=== PATIENT | female | born 2000 | race Caucasian/White ===

== ENCOUNTER 2022-01-30 09:40 | Emergency (ER) | payer SELFPAY ==
[~2022-01-30] VITALS: Ht 167.6 cm; Wt 62.1 kg
--- NOTE | 2022-01-30 09:40 | NUR ---
PT THANH 77 FROM HOME C/O AGITATION AFTER COCAINE AND ALCOHOL USED. VERSED 7.5MG GIVEN BY EMS. PT IS AAOX1, NOT IN RESPIRATORY DISTRESS, HOOKED TO HOG BUYER, KEPT RESTED AND COMFORTABLE. WILL CONTINUE TO MONITOR.
[2022-01-30] MEDS ORDERED: IV NS 0.9% 1,000 ML BAG IV ONE (10:00)
--- NOTE | 2022-01-30 10:09 | NUR ---
MINDY [phone] SISTER.
--- NOTE | 2022-01-30 10:10 | NUR ---
URINE SPECIMEN COLLECTED AND SENT TO LAB.
[2022-01-30 10:30] LABS: BASOPHILS % (AUTO) 0.5 % (0.0-2.0); EOSINOPHILS % (AUTO) 0.4 % (0.0-6.0); HEMATOCRIT 41 % (33-45); HEMOGLOBIN 13.5 g/dL (11.5-14.8); LYMPHOCYTES # (AUTO) 1.3 K/uL (0.8-4.8); LYMPHOCYTES % (AUTO) 17.4 % (20.0-44.0); MEAN CORPUSCULAR HGB CONC 33 g/dl (31.0-36.0); MEAN CORPUSCULAR VOLUME 87 fL (82-100); MONOCYTES # (AUTO) 0.7 K/uL (0.1-1.30); MONOCYTES % (AUTO) 9.5 % (2.0-12.0); NEUTROPHILS # (AUTO) 5.5 K/uL (1.8-8.9); NEUTROPHILS % (AUTO) 72.2 % (43.0-81.0); PLATELET COUNT (AUTO) 294 K/uL (150-450); WHITE BLOOD COUNT (AUTO) 7.6 K/uL (4.3-11.0)
[2022-01-30 10:36] LABS: BILIRUBIN,URINE NEGATIVE (NEGATIVE); LEUKOCYTE ESTERASE ,URINE NEGATIVE (NEGATIVE); NITRITE, URINE NEGATIVE (NEGATIVE); PROTEIN,URINE NEGATIVE (NEGATIVE); UGLUCOSE NEGATIVE (NEGATIVE); UROBILINOGEN,URINE 0.2 EU/dL (0.2)
[2022-01-30 10:37] LABS: COLOR,URINE STRAW (YELLOW)
--- NOTE | 2022-01-30 10:40 | NUR ---
PT IS BACK FROM THE CT SCAN.
--- NOTE | 2022-01-30 10:41 | NUR ---
[place] [facility] [phone]
[2022-01-30 11:15] LABS: CREATINE KINASE, TOTAL 109 U/L (26-192)
[2022-01-30 11:18] LABS: ALANINE AMINOTRANSFERASE 13 U/L (12-78); ALCOHOL, BLOOD < 3 mg/dL (0-0); ALKALINE PHOSPHATASE 47 U/L (46-116); ASPARTATE AMINOTRANSFERASE 7 U/L (15-37); BILIRUBIN,DIRECT 0.1 mg/dL (0.0-0.2); BILIRUBIN,TOTAL 0.5 mg/dL (0.2-1.0); CALCIUM, SERUM 8.9 mg/dL (8.5-10.1); CARBON DIOXIDE 23 mmol/L (21-32); CHLORIDE 105 mmol/L (98-107); CREATININE 0.9 mg/dL (0.6-1.3); GLUCOSE 85 mg/dL (74-106); POTASSIUM 3.7 mmol/L (3.5-5.1); SODIUM SERUM 139 mmol/L (136-145); TOTAL PROTEIN, SERUM 7.2 g/dL (6.4-8.2); UREA NITROGEN, BLOOD 7 mg/dL (7-18)
[2022-01-30 11:30] LABS: ACETAMINOPHEN 0 ug/ml (10-30)
[2022-01-30 11:39] LABS: BACTERIA,URINE None seen /HPF (None Seen); WBC,URINE 0-2 /HPF (0-3)
[2022-01-30 11:40] LABS: MUCUS,URINE Few /LPF (None Seen); SQUAMOUS EPITHELIAL CELL,UR Few /HPF (None Seen)
--- NOTE | 2022-01-30 13:37 | NUR ---
PT AWAKE AND ALERT. PER PT HER FRIEND IS COMING TO PICK HER UP AND BRING SOME CLOTHES.
[2022-01-30 15:17] VITALS: BP 121/73
--- NOTE | 2022-01-30 15:17 | NUR ---
IV removed. Catheter intact and site benign. Pressure and 4x4 applied to site. No bleeding noted. Patient discharged to home in stable condition. Written and verbal after care instructions given. Patient verbalizes understanding of instruction.
--- NOTE | 2022-01-30 15:17 | NUR ---
FRIEND AT BEDSIDE FOR MACHINE LOAD CLERK.
== END 2022-01-30 15:43 | disposition home or self-care (01) ==
LOC: ER 09:43
DX: R45.1 Restlessness and agitation (principal); R41.82 Altered mental status, unspecified; F32.A Depression, unspecified; F17.200 Nicotine dependence, unspecified, uncomplicated
CPT/HCPCS: 36415; 70450; 80048; 80076; 80143; 80307; 80320; 81001; 82550; 84703; 85025; 96360; 99284; J7030; G0480

== ENCOUNTER 2022-05-16 04:03 | Emergency (ER) | payer OTHER ==
[~2022-05-16] VITALS: Ht 167.6 cm; Wt 59.0 kg
--- NOTE | 2022-05-16 04:27 | NUR ---
THANH AND [employer] FOR C/O SELF-INFLICTED HEADE/L EYE INJURY S/P TAKING ECSTASY TONIGHT. PT HAS HX OF BIPOLAR DISORDER AND SCHIZOPHRENIA AND HAS HAD SIMILIAR EPISODES AND HAS BEEN PLACED ON 5150S IN THE PAST PER EMS/[employer] REPORT. PT DENIES ANY ANY LOSS OF CONSCIOUSNESS, DIZZINES, N/V, OR PAIN. PT AWAKE AND ALERT X4, BREATHING EVEN AND UNLABORED.PT DENIES SI/HI STATES SHE GOT "TOO HIGH". PLACED ON 5150 HOLD BY [employer] FOR DTS. PT CHANGED INTO GOWN AND BELONGINGS REMOVED FROM PATIENT ROOM. SITTER AT BEDSIDE FOR SAFETY PRECAUTIONS. PLACED ON MONITOR AND V/S WNL.
--- NOTE | 2022-05-16 04:41 | NUR ---
SECURITY AT BEDSIDE FOR WANDING
--- NOTE | 2022-05-16 04:44 | NUR ---
ASPHALT COATER AT BEDSIDE
--- NOTE | 2022-05-16 04:50 | NUR ---
COVID TEST COLLECTED AND SENT TO LAB
--- NOTE | 2022-05-16 04:50 | NUR ---
PT UNABLE TO GIVE URINE AT THIS TIME. URINE CUP PROVIDED AT BEDSIDE.
[2022-05-16 04:58] LABS: BASOPHILS % (AUTO) 0.5 % (0.0-2.0); HEMATOCRIT 39 % (33-45); HEMOGLOBIN 13.1 g/dL (11.5-14.8); LYMPHOCYTES # (AUTO) 0.7 K/uL (0.8-4.8); LYMPHOCYTES % (AUTO) 8.8 % (20.0-44.0); MEAN CORPUSCULAR HGB CONC 34 g/dl (31.0-36.0); MEAN CORPUSCULAR VOLUME 87 fL (82-100); MONOCYTES # (AUTO) 0.2 K/uL (0.1-1.30); MONOCYTES % (AUTO) 3.1 % (2.0-12.0); NEUTROPHILS # (AUTO) 7.1 K/uL (1.8-8.9); NEUTROPHILS % (AUTO) 87.6 % (43.0-81.0); PLATELET COUNT (AUTO) 251 K/uL (150-450); RED BLOOD CELL COUNT(AUTO) 4.47 MIL/uL (4.0-5.2); WHITE BLOOD COUNT (AUTO) 8.1 K/uL (4.3-11.0)
[2022-05-16 05:12] LABS: ACETAMINOPHEN 3 ug/ml (10-30); ALANINE AMINOTRANSFERASE 11 U/L (12-78); ALBUMIN 4.1 g/dL (3.4-5.0); ALKALINE PHOSPHATASE 58 U/L (46-116); ASPARTATE AMINOTRANSFERASE 14 U/L (15-37); BILIRUBIN,DIRECT 0.2 mg/dL (0.0-0.2); BILIRUBIN,TOTAL 0.8 mg/dL (0.2-1.0); CALCIUM, SERUM 8.4 mg/dL (8.5-10.1); CARBON DIOXIDE 25 mmol/L (21-32); CHLORIDE 103 mmol/L (98-107); CREATININE 0.9 mg/dL (0.6-1.3); GLUCOSE 103 mg/dL (74-106); POTASSIUM 3.5 mmol/L (3.5-5.1); SODIUM SERUM 137 mmol/L (136-145); TOTAL PROTEIN, SERUM 7.3 g/dL (6.4-8.2); UREA NITROGEN, BLOOD 3 mg/dL (7-18)
[2022-05-16 05:13] LABS: ALCOHOL, BLOOD < 3 mg/dL (0-0)
--- NOTE | 2022-05-16 05:17 | NUR ---
PT BEING TRANSPORTED TO CT VIA [facility]
--- NOTE | 2022-05-16 06:05 | NUR ---
URINE COLLECTED AND SENT TO LAB
[2022-05-16 06:59] LABS: BILIRUBIN,URINE NEGATIVE (NEGATIVE); LEUKOCYTE ESTERASE ,URINE NEGATIVE (NEGATIVE); NITRITE, URINE NEGATIVE (NEGATIVE); PROTEIN,URINE NEGATIVE (NEGATIVE); UGLUCOSE NEGATIVE (NEGATIVE); UROBILINOGEN,URINE 0.2 EU/dL (0.2)
[2022-05-16 07:02] LABS: COLOR,URINE STRAW (YELLOW)
[2022-05-16 07:24] LABS: BACTERIA,URINE None seen /HPF (None Seen); RBC,URINE 0-2 /HPF (0-2); SQUAMOUS EPITHELIAL CELL,UR Few /HPF (None Seen); WBC,URINE 0-2 /HPF (0-3)
--- NOTE | 2022-05-16 10:00 | NUR ---
AUTOMOBILE SALESMAN AT BEDSIDE.
--- NOTE | 2022-05-16 10:54 | NUR ---
Paged Art, left VM.
--- NOTE | 2022-05-16 11:28 | NUR ---
Art will be coming to evaluate pt.
--- NOTE | 2022-05-16 11:41 | NUR ---
SS Note: Pt. Is a 22-year-old female who demonstrates adequate insight to the reason for hospitalization. Per EMR, pt. was brought in by [employer] placed on a 5150 hold. Pt. was taking Ecstasy last night, blacked out and hit her head on a table causing a black eye. Per pt., she was not attempting suicidal. Pt. was oriented x4, alert, and cooperative. During interview, pt. was capable of following directions and appeared unkempt. Pt.'s speech was at a normal rate and pt.'s mood was elevated. Pt. reported no hx of mental health, denies suicidal ideation, or homicidal ideation. Pt. denies auditory hallucinations, visual hallucinations, paranoia, or delusions. SW explored pt.'s living situation. Per pt., she lives with her boyfriend Hector. Pt. stated that she has not taken drugs recently besides Ecstasy. Per labs, pt. is positive for cocaine. Pt. states that she feels better and denies suicidal. Pt. has a therapist [Rimma] who she sees once a week. Pt. states she is helpful, and SW told pt. to contact her once she leaves the hospital. Plan: SW provided available resources and pt. accepted. SW paged Art, and he will be coming to see pt. Resources Provided: Counseling--[facility] [address] [facility] [place] [address] (Specializes in in-depth psychotherapy for emotional distress: anxiety, depression, interpersonal conflicts, life transitions, childhood abuse) [facility] [address] [place] [address] (Assist with solving problem marital difficulties, separation & divorce, aging parents, & grief, chronic & terminal illness) [facility] [address] [place] [address] (Deal with loss & grief, anxiety, marital difficulties) [facility] [address] [place], [place] [address] (Provide in-home mental services to people who are incapable of leaving their homes) [facility] [address] [place] [address] [facility] [address] [facility] [place] [address] PSYCHIATRIC OUTPATIENT SERVICES [facility] Partial Hospitalization and Intensive Outpatient Program (Managed Care and [place] Only)[address] [facility] [phone] [facility] Partial Hospitalization and Outpatient [id number] [place], [place] [phone] [facility] [id number] [place], [place] [phone] [facility] Partial Hospitalization and Outpatient [id number] [facility] Arturo Hernandez, [phone] Substance Abuse resources provided included: [facility] Substance Abuse Self-Helpline ([facility]) ; [facility] [address] [facility]. [place] [id number] ; [facility] [address] [facility] [address] [facility] Program [address] [facility] [address] ; [facility] [place] [address] [facility] [phone] ; [facility] [address] [facility] [phone] ; [facility] [address] [facility] [address] ; [facility] Substance Abuse Helpline([facility])-[facility] ; [facility] ; [facility]; [facility] [place]; [facility] [place]; [facility] [place]; [place], [facility]; [facility]; [facility] Rod; [facility], [facility]. [facility] [place]; Alcoholics Anonymous -SFV; Fw-Wtri-Xstxkoc ; Marijuana Anonymous -[facility]; Narcotics Anonymous www.na.org;
[2022-05-16 14:12] VITALS: BP 124/86
--- NOTE | 2022-05-16 14:12 | NUR ---
Patient discharged to home in stable condition. Written and verbal after care instructions given. Patient verbalizes understanding of instruction. All belongings brought by patient.
== END 2022-05-16 14:14 | disposition home or self-care (01) ==
LOC: ER 04:10
DX: R45.1 Restlessness and agitation (principal); S09.90XA Unspecified injury of head, initial encounter; X83.8XXA Intentional self-harm by other specified means, initial encounter; Y92.019 Unspecified place in single-family (private) house as the place of occurrence of the external cause; F31.9 Bipolar disorder, unspecified; F20.9 Schizophrenia, unspecified; Z20.822 Contact with and (suspected) exposure to COVID-19; F19.10 Other psychoactive substance abuse, uncomplicated
CPT/HCPCS: 36415; 70450; 80048; 80076; 80143; 80307; 80320; 81001; 85025; 87426; 99285; C9803; G0480